=== PATIENT | male | born 1935 | race Asian ===

== ENCOUNTER 2018-05-30 23:18 | Emergency (ER) | payer OTHER ==
[2018-05-30 23:28] VITALS: Ht 162.6 cm
[2018-05-31 00:23] LABS: BASOPHIL % 0.8 % (0-2); PLATELET COUNT 224 x10^3mcL (130-400); RED CELL DISTRIBUTION WIDTH 14.5 % (11.5-14.5)
[2018-05-31 00:32] LABS: CARBON DIOXIDE 28.2 mmol/L (21-32); CHLORIDE SERUM 104 mmol/L (98-107); CREATININE SERUM 1.5 mg/dL (0.7-1.3); GLUCOSE SERUM 114 mg/dL (74-106); POTASSIUM SERUM 3.7 mmol/L (3.5-5.1); SODIUM SERUM 139 mmol/L (136-145)
[2018-05-31 00:35] LABS: ALBUMIN 3.7 g/dL (3.4-5.0); ALKALINE PHOSPHATASE 76 U/L (46-116); ALT/SGPT 21 U/L (16-63); AMYLASE 118 U/L (25-115); AST/SGOT 21 U/L (15-37); BILIRUBIN TOTAL 0.3 mg/dL (0.20-1.00); LIPASE 169 IU/L (73-393); TOTAL PROTEIN, SERUM 7.8 g/dL (6.4-8.2)
[2018-05-31 01:20] VITALS: BP 128/64
== END 2018-05-31 01:20 | disposition home or self-care (01) ==
LOC: ED 23:18
PROVIDERS: Emergency Medicine
DX: K80.50 Calculus of bile duct without cholangitis or cholecystitis without obstruction (principal); I10 Essential (primary) hypertension; Z88.8 Allergy status to other drugs, medicaments and biological substances
CPT/HCPCS: 36415; J1885

== ENCOUNTER 2018-07-02 22:33 | Emergency (ER) | payer OTHER ==
[~2018-07-02] VITALS: Ht 162.6 cm; Wt 62.3 kg
[2018-07-02 22:39] VITALS: Ht 162.6 cm; Wt 62.3 kg
[2018-07-02 23:36] LABS: BASOPHIL % 0.4 % (0-2); PLATELET COUNT 227 x10^3mcL (130-400)
[2018-07-02 23:53] LABS: CALCIUM 8.9 mg/dL (8.5-10.1); CARBON DIOXIDE 29.4 mmol/L (21-32); CHLORIDE SERUM 105 mmol/L (98-107); CREATININE SERUM 1.5 mg/dL (0.7-1.3); GLUCOSE SERUM 135 mg/dL (74-106); POTASSIUM SERUM 3.9 mmol/L (3.5-5.1); SODIUM SERUM 139 mmol/L (136-145)
[2018-07-02 23:58] LABS: ALBUMIN 3.7 g/dL (3.4-5.0); ALKALINE PHOSPHATASE 81 U/L (46-116); ALT/SGPT 22 U/L (16-63); AST/SGOT 21 U/L (15-37); BILIRUBIN TOTAL 0.3 mg/dL (0.20-1.00); LIPASE 176 IU/L (73-393)
[2018-07-03 01:45] VITALS: BP 140/68
== END 2018-07-03 01:45 | disposition home or self-care (01) ==
LOC: ED 22:33
PROVIDERS: Emergency Medicine
DX: K80.20 Calculus of gallbladder without cholecystitis without obstruction (principal); Z88.8 Allergy status to other drugs, medicaments and biological substances
CPT/HCPCS: J2270; J2405; Q0092